=== PATIENT | female | born 2000 | race African-American/Black ===

== ENCOUNTER 2024-12-11 15:48 | Outpatient (CLI) | payer MEDICAID, SELFPAY ==
--- OUTSIDE RECORDS SUMMARY | 2024-12-11 15:51 | XMS_ITS | Encounter Summary ---
Author Organization [employer] ([place], [place], [place], [place], [place]) Address [address] [place] [address] Care Team Providers Care Smelter Liner Name Role Phone Unavailable Primary Care Provider Unavailabl e Encounter Details Date Type Department Care Team (Late st Contact Info) Description 04/25/2018 Transcribed Document [facility] [place] Family Medicine [facility] [place] [address] ProviderAleksandar MD [address] [place] [address] Social History Tobacco Use Types Packs/Day Years Used Date Smoking Tobacco: Never Assessed Comments Unknown Sex and Gender Information Value Date Recorded Sex Assigned at Female 08/02/2021 8:29 PM CDT Legal Sex Female 8:29 PM CDT Gender Identity Female 08/02/2021 8:29 PM CDT Sexual Orientation Not on file documented as of this encounter Miscellaneous Notes * Cerner Conversion Note - Historical ProviderMD - 04/25/2018 11:08 AM CDT ED Event Note Entered On: 04/25/2018 11:11 EDT Performed On: 04/25/2018 11:08 EDT by JULIETTE BECKMAN RN ED Event Note ED Event Date/Time : 04/25/2018 11:08 EDT ED Event Location : Assigned room ED Description of Event : Pt. seen by Charisma JACOBSON and then given instructions and one script and verb understanding and left amb with family. JULIETTE BECKMAN RN - 04/25/2018 11:08 EDT documented in this encounter Plan of Treatment Not on file documented as of this encounter Visit Diagnoses Not on filedocumented in this encounter
--- OUTSIDE RECORDS SUMMARY | 2024-12-11 15:51 | XMS_ITS | Encounter Summary ---
Author Organization [employer] ([place], [place], [place], [place], [place]) Address [address] [place] [address] Care Team Providers Care Hot Dip Plater Name Role Phone Unavailable Primary Care Provider Unavailabl e Encounter Details Date Type Department Care Team (Late st Contact Info) Description 08/22/2019 Transcribed Document [facility] [place] [facility] [place] [address] ProviderAleksandar MD [address] [place], [place] [id number] Social History Tobacco Use Types Packs/Day Years Used Date Smoking Tobacco: Never Assessed Comments Unknown Sex and Gender Information Value Date Recorded Sex Assigned at Female 08/02/2021 8:29 PM CDT Legal Sex Female 8:29 PM CDT Gender Identity Female 08/02/2021 8:29 PM CDT Sexual Orientation Not on file documented as of this encounter Miscellaneous Notes * Cerner Conversion Note - Aleksandar ProviderMD - 08/22/2019 7:26 PM CDT [place] Suicide Severity Rating Scale (C-SSRS) Entered On: 08/22/2019 20:09 EDT Performed On: 08/22/2019 20:08 EDT by AQUILES VILLAREAL RN [place] Suicide Severity Rating Scale (C-SSRS) CSSRS Past Month Wish to be : Yes CSSRS Past Month Suicidal Thoughts : Yes CSSRS Past Month Suicide Method : No CSSRS Past Month Idea, Intent No Plan : Yes CSSRS Past Month Suicide With Plan : No CSSRS Lifetime Suicide Behavior : No Suicide Severity Rating Score : 10 Suicide Severity Rating : High AQUILES VILLAREAL RN - 08/22/2019 20:08 EDT Electronically signed by Aaliyah, Lin Conversion Shuttle Preparation Supervisor Cerner at 05/24/2022 12:29 PM CDT documented in this encounter Plan of Treatment Not on file documented as of this encounter Visit Diagnoses Not on filedocumented in this encounter
--- OUTSIDE RECORDS SUMMARY | 2024-12-11 15:51 | XMS_ITS | Encounter Summary ---
Author Organization [employer] ([place], [place], [place], [place], [place]) Address [address] [place] [address] Care Team Providers Care Patch Machine Operator Name Role Phone Unavailable Primary Care Provider Unavailabl e Encounter Details Date Type Department Care Team (Late st Contact Info) Description 08/22/2019 Transcribed Document [facility] [place] [address] ProviderAleksandar MD [address] [place] [address] Social History Tobacco Use Types Packs/Day [...] Conversion Note - Aleksandar ProviderMD - 08/22/2019 8:22 PM CDT Patient Resource Center Entered On: 08/22/2019 20:23 EDT Performed On: 08/22/2019 20:22 EDT by Yari Recio SCHEDULER Patient Resource Center Provider Status : SERINA/Simone Established Provider Name : No Patient Phone Number : [phone] Patient Insurance Type : Commercial (ex. [employer] PPO, [employer] HMO) Source of Referral : Requirements not met Location of Patient : Emergency department Primary Care Scheduled : No Specialty Care Scheduled : No Qualify for Diabetes and/or Nutrition Referral : No Wound Care Appointment Made : No Why Patient Visited ED- Specialty spent : Other How Patient Arrived at ED : Personal Vehicle Primary Language : Belarusian Patient Resource Center Comment : Requirements not met. Follow Up Needed : No Yari Recio, VOLUNTEER RECRUITMENT COORDINATOR - 08/22/2019 20:22 EDT documented in this encounter Plan of Treatment Not on file documented as of this encounter Visit Diagnoses Not on filedocumented in this encounter
--- OUTSIDE RECORDS SUMMARY | 2024-12-11 15:51 | XMS_ITS | Encounter Summary ---
Author Organization [employer] ([place], [place], [place], [place], [place]) Address [address] [place] [address] Care Team Providers Care Credit Charge Authorizer Name Role Phone Unavailable Primary Care Provider Unavailabl e Encounter Details Date Type Department Care Team (Late st Contact Info) Description 04/25/2018 Transcribed Document [facility] [place] [facility] [place] [address] ProviderAleksandar MD [address] [place] [address] Social History Tobacco Use Types Packs/Day [...] Cerner Conversion Note - Aleksandar ProviderMD - 04/25/2018 10:24 AM CDT ED Assessment Entered On: 04/25/2018 10:34 EDT Performed On: 04/25/2018 10:32 EDT by Catherine Maya Rn-Flex Team ED Quick Look Assessment Level of Consciousness : Alert, Awake Affect/Behavior : Appropriate, Calm, Cooperative Orientation : Oriented x 4 Catherine Maya Rn-Flex Team - 04/25/2018 10:32 EDT ED General-Functional Assess Information Obtained From : Patient Communication Barrier : None Primary Language : Mexican Any Spiritual/Cultural Needs or Requests : No Currently in Unsafe Situation : No Catherine Maya Rn-Flex Team - 04/25/2018 10:32 EDT Social Habits Smoking Status : 10 or more cigarettes (1/2 pack or more)/day in last 30 days Smokeless Tobacco Status : Never Desires Tobacco Cessation Medication : No Reason for No Tobacco Cessation Medication : ED/procedural patient only Desires Tobacco Cessation Calc : 1 Catherine Maya Rn-Flex Team - 04/25/2018 10:32 EDT Social History (As Of: 04/25/2018 10:34:17 EDT) Tobacco: 10 or more cigarettes (1/2 pack or more)/day in last 30 days Smoking Status. Last Used: reports quit 2 weeks ago, approximately 04/11/18. (Last Updated: 04/25/2018 10:33:58 EDT by Catherine Maya Rn-Flex Team) EENT Assessment EENT Assessment WDL : WDL with exceptions Mouth/Throat Assessment Comment : sore throat since Sunday Catherine Maya Rn-Flex Team - 04/25/2018 10:32 EDT documented in this encounter Plan of Treatment Not on file documented as of this encounter Visit Diagnoses Not on filedocumented in this encounter
--- OUTSIDE RECORDS SUMMARY | 2024-12-11 15:51 | XMS_ITS | Referral Summary ---
Author Organization [employer] ([place], [place], [place], [place], [place]) Address [address] [place] [address] Care Team Providers Care Property Disposal Manager Name Role Phone Unavailable Primary Care Provider Unavailabl e Social History Tobacco Use Types Packs/Day Years Used Date Smoking Tobacco: Never Assessed Comments Unknown Sex and Gender Information Value Date Recorded Sex Assigned at Female 08/02/2021 8:29 PM CDT Legal Sex Female 8:29 PM CDT Gender Identity Female 08/02/2021 8:29 PM CDT Sexual Orientation Not on file Plan of Treatment Not on file
--- OUTSIDE RECORDS SUMMARY | 2024-12-11 15:51 | XMS_ITS | Encounter Summary ---
Author Organization [employer] ([place], [place], [place], [place], [place]) Address [address] [place] [address] Care Team Providers Care Salesperson Toy Trains And Accessories Name Role Phone Unavailable Primary Care Provider Unavailabl e Encounter Details Date Type Department Care Team (Late st Contact Info) Description 08/22/2019 Transcribed Document [facility] [place] Family [place] [address] ProviderAleksandar MD [address] [place] [address] Social History Tobacco Use Types Packs/Day [...] Conversion Note - Aleksandar ProviderMD - 08/22/2019 8:15 PM CDT ED Event Note Entered On: 08/22/2019 20:17 EDT Performed On: 08/22/2019 20:15 EDT by Kanchan Wiggins RN ED Event Note ED Event Date/Time : 08/22/2019 20:15 EDT ED Event Location : Assigned room ED Description of Event : Called [facility] transfer [place] for a mobile evaluation. Kanchan Wiggins RN - 08/22/2019 20:15 EDT Electronically signed by Aaliyah [facility] Conversion Dining Room Maid Cerner at 05/24/2022 12:38 PM CDT documented in this encounter Plan of Treatment Not on file documented as of this encounter Visit Diagnoses Not on filedocumented in this encounter
--- OUTSIDE RECORDS SUMMARY | 2024-12-11 15:51 | XMS_ITS | Encounter Summary ---
Author Organization [employer] ([place], [place], [place], [place], [place]) Address [address] [place] [address] Care Team Providers Care Crimping Machine Operator For Metal Name Role Phone Unavailable Primary Care Provider Unavailabl e Encounter Details Date Type Department Care Team (Late st Contact Info) Description 08/22/2019 Transcribed Document [facility] [place] [facility] [place] [address] ProviderAleksandar MD [address] [place] [address] Social History Tobacco Use Types Packs/Day [...] Conversion Note - Aleksandar ProviderMD - 08/22/2019 11:38 PM CDT ED Discharge Entered On: 08/22/2019 23:38 EDT Performed On: 08/22/2019 23:38 EDT by Kim García, monogram and letter paster Process Patient Disposition : Transfer Personal Belongings With Patient : Yes Patient Education Completed : Yes Teaching Evaluation : Verbalizes understanding IV Discontinued : Not applicable Nursing Documentation Completed : Yes Kim García, RN - 08/22/2019 23:38 EDT ED Discharge Discharge To : Psychiatric unit/facility Name of Receiving Facility/Provider : [facility] Mode Of Departure : Ambulance/BLS Accompanied By : merchandiser seasonal Discharge Instructions Reviewed With, Opportunity For Questions Given : Patient Prescriptions Given to Patient : No Kim García L, RN - 08/22/2019 23:38 EDT Electronically signed by Aaliyah, [facility] Conversion Air Quality Engineer Cerner at 05/24/2022 12:33 PM CDT documented in this encounter Plan of Treatment Not on file documented as of this encounter Visit Diagnoses Not on filedocumented in this encounter
--- OUTSIDE RECORDS SUMMARY | 2024-12-11 15:51 | XMS_ITS | Encounter Summary ---
Author Organization [employer] ([place], [place], [place], [place], [place]) Address [address] [place] [address] Care Team Providers Care Cleaning Custodian Name Role Phone Unavailable Primary Care Provider Unavailabl e Encounter Details Date Type Department Care Team (Late st Contact Info) Description 04/25/2018 Transcribed Document [facility] [place] [address] ProviderAleksandar MD [address] [place] [address] Social History Tobacco Use Types Packs/Day [...] Conversion Note - Aleksandar ProviderMD - 04/25/2018 11:12 AM CDT [address] [place] [address] Patient Information Name: YAHAIRA WALTON Age: 17 Years Date of : 2000 Arrival Time: 04/25/2018 10:24:00 Diagnosis Pharyngitis Primary Care Physician: KIM MELENDEZ DR Provider Information Primary Provider: ALPHONSO MUNGUIA PA-C Secondary Provider: WALTON, VALORIEMIKE KITCHEN has been given the following list of patient education materials, prescriptions and follow-up instructions: Follow-up Instructions: With: Address: When: Salvador Montes Within 2 to 3 days Comments: Return to ER if symptoms worse or different. Patient Education Materials: Pharyngitis Pharyngitis is redness, pain, and swelling (inflammation) of your pharynx. What are the causes? Pharyngitis is usually caused by infection. Most of the time, these infections are from viruses (viral) and are part of a cold. However, sometimes pharyngitis is caused by bacteria (bacterial). Pharyngitis can also be caused by allergies. Viral pharyngitis may be spread from person to person by coughing, sneezing, and personal items or utensils (cups, forks, spoons, toothbrushes). Bacterial pharyngitis may be spread from person to person by more intimate contact, such as kissing. What are the signs or symptoms? Symptoms of pharyngitis include: ??? Sore throat. ??? Tiredness (fatigue). ??? Low-grade fever. ??? Headache. ??? Joint pain and muscle aches. ??? Skin rashes. ??? Swollen lymph nodes. ??? Plaque-like film on throat or tonsils (often seen with bacterial pharyngitis). How is this diagnosed? Your health care provider will ask you questions about your illness and your symptoms. Your medical history, along with a physical exam, is often all that is needed to diagnose pharyngitis. Sometimes, a rapid strep test is done. Other lab tests may also be done, depending on the suspected cause. How is this treated? Viral pharyngitis will usually get better in 3?4 days without the use of medicine. Bacterial pharyngitis is treated with medicines that kill germs (antibiotics). Follow these instructions at home: ??? Drink enough water and fluids to keep your urine clear or pale yellow. ??? Only take dios-[id number] or prescription medicines as directed by your health care provider: ? If you are prescribed antibiotics, make sure you finish them even if you start to feel better. ? Do nottake aspirin. ??? Get lots of rest. ??? Gargle with 8 oz of salt water (? tsp of salt per 1 qt of water) as often as every 1?2 hours to soothe your throat. ??? Throat lozenges (if you are not at risk for choking) or sprays may be used to soothe your throat. Contact a health care provider if: ??? You have large, tender lumps in your neck. ??? You have a rash. ??? You cough up green, yellow-brown, or bloody spit. Get help right away if: ??? Your neck becomes stiff. ??? You drool or are unable to swallow liquids. ??? You vomit or are unable to keep medicines or liquids down. ??? You have severe pain that does not go away with the use of recommended medicines. ??? You have trouble breathing (not caused by a stuffy nose). This information is not intended to replace advice given to you by your health care provider. Make sure you discuss any questions you have with your health care provider. Document Released: 01/22/2006 Document Revised: 06/29/2016 Document Reviewed: 09/29/2013 [email or web address] Interactive Patient Education ? 2017 [employer]. Allergies: sulfa drugs Medication Information: Prescription Display azithromycin (Zithromax Z-Castillo 250 mg oral tablet) 1 Tab, Oral, Tab, Daily, TAKE 2 TABLETS FIRST DAY, THEN 1 TABLET DAILY, X 5 Day(s), # 6 Tab, 0 Refill(s) Laboratory or Other Results This Visit (last charted value for your 04/25/2018 visit) No Laboratory or Other Results This Visit Medication Comment: Procedures: Laboratory Orders No laboratory orders were placed. Radiology Orders No radiology orders were placed. Cardiology Orders No cardiology orders were placed. This statement is to verify that YAHAIRA WALTON was seen at [facility] Emergency Department on ,04/25/2018 11:12:22. This is not a work excuse, if a work excuse was needed it will be in addition to this statement as a separate form. IMPORTANT: The examination and treatment you have received in the Emergency Department has been done to provide an appropriate evaluation and stabilizing treatment on an emergency basis only. Given the limited resources, it is not meant to be a substitute for complete medical care. The follow-up doctor you named will receive a copy of your records and all test reports. IT IS IMPORTANT THAT YOU SCHEDULE A FOLLOW-UP APPOINTMENT AND ARE RE-EVALUATED. You should report any new complaints, symptoms, or remaining problems at that time. IT IS IMPOSSIBLE FOR THE EMERGENCY DEPARTMENT TO RECOGNIZE AND TREAT ALL ELEMENTS OF INJURY OR ILLNESS IN A SINGLE VISIT. If you have been referred to a specialist physician, it means that we believe you may have a condition that requires the expertise of a specialist. KEEP IN MIND THAT THE SPECIALIST HAS HIS/HER OWN OFFICE POLICIES WHICH MAY REQUIRE PROPER INSURANCE OR PAYMENT UP FRONT BEFORE THE SPECIALIST WILL SEE YOU. It is your responsibility to call the specialist physician to make an appointment. We do not have the ability to identify specialists/physicians that work with specific insurance companies. Please be advised that all financial charges or billing practices are determined by that practice, not the hospital. If your insurance company requires that you see a specialist from their approved list, it is your responsibility to contact your insurance company to make those arrangements. It is also your responsibility to follow any other requirements of your insurance company necessary to obtain coverage for claims submitted. If you had special tests, such as EKG???s or X-rays, the interpretation of your tests given to you by the Emergency Dept. Physician is a preliminary report. Some fractures and illnesses fail to show up on preliminary tests. We will review them again within 24-48 hours. We will call you if there are any new suggestions. If your symptoms continue notify your physician. After you leave, you should follow the instructions below. In all events, you may obtain a copy of your Emergency Department visit from Medical Records. Please call to be directed to this department. We will bill your insurance; however, you are responsible today for any co-pay amounts. You will receive a separate bill for any services you may have received including: emergency, radiology, or pathology physicians. Please be sure we have an accurate contact phone number and address, should we need to call you for any reason. CIGARETTE SMOKING: The facts are clear; cigarette smoking will shorten your life. Smoking can cause many illnesses along the way. As a healthcare provider, [facility] recommends that you stop smoking. Assistance with quitting is available by contacting 7-561-RAUZ-NOW. This is a free resource providing counseling, support, and referral. Or you may contact your personal physician. As part of your treatment plan, your physician may have prescribed a limited course of a controlled substance. This medication may be given to help people with moderate or severe pain or for other medical conditions, but there are risks involved with treatment. Common side effects may include nausea, constipation, drowsiness, sweating, itching, dry mouth, and rash. More serious side effects may include cognitive and motor impairment, like problems with thinking, concentrating, alertness, and movement (e.g. slowed reflexes), and driving and operating heavy machinery can be dangerous. It is important for you to talk to your physician if you have these side effects or questions. These controlled substances can produce physical dependence and be habit-forming if taken for an extended period of time, which means that the body has gotten used to them and may experience withdrawal symptoms if they are abruptly stopped. Withdrawal symptoms can include runny nose, sweating, goose bumps, diarrhea, abdominal cramping, rapid heartbeat, difficulty sleeping, and nervousness. The home medications listed are only as accurate as the information you provided. Please continue taking all of your medications prescribed by your Primary Care Provider unless specifically told to change or discontinue the medication. Please direct any questions regarding your home medications to your Primary Care Provider. YOU ARE THE MOST IMPORTANT FACTOR IN YOUR RECOVERY. ?? Follow your instructions carefully ?? Take your medicines as prescribed ?? Most important, see a provider as discussed. If you do not have a provider, we can provide a list of clinics Confidential This message and accompanying documents are covered by Electronic Communications Privacy Act 18 U.S.C. ???Sections 9104-3108,?? and contain information intended for the specified individual(s) only. This information is confidential. If you are not the intended recipient or an agent responsible for delivering it to the intended recipient, you are hereby notified that you have received the document in error and that any review, dissemination, copying, or the taking of any action based on the contents of this information is strictly prohibited. If you have received this communication in error, please notify us immediately by email, and delete the original message. 4 WAYS TO GET AHEAD OF SEPSIS SEPSIS is a MEDICAL EMERGENCY. Time matters! Infections put you and your family at risk for a life-threatening condition called sepsis. Sepsis is the body???s extreme response to an infection. It is life-threatening, and without timely treatment, sepsis can rapidly lead to tissue damage, organ failure, and . Sepsis happens when an infection you already have???in your skin, lungs, urinary tract or somewhere else???triggers a chain reaction throughout your body. 1 PREVENT INFECTIONS Take good care of chronic conditions. Talk to your doctor about getting the recommended vaccines. 2 PRACTICE GOOD HYGIENE Wash your hands frequently. Keep cuts or open sores clean and covered until they are healed. 3 KNOW THE SYMPTOMS Confusion or disorientation Shortness of breath High heart rate Fever, shivering, or feeling very cold Extreme pain or discomfort Clammy or sweaty skin 4 ACT FAST Get medical care IMMEDIATELY if you suspect sepsis or if you have an infection that???s not getting better or is getting worse. To learn more about sepsis and how to prevent infections, visit www.cdc.gov/sepsis. STROKE is an EMERGENCY Every [employer] ACT F.A.S.T! FACE ?? Facial droop ?? Uneven smile ARM ?? Arm numbness ?? Arm weakness SPEECH ?? Slurred speech ?? Difficulty speaking or understanding TIME ?? Call 911 and get to the hospital immediately Have the ambulance go to the nearest stroke center. STROKE Risk Factors High blood pressure High cholesterol Heart Disease Diabetes Smoking Heavy alcohol use Physical inactivity and obesity Atrial Fibrillation (irregular heartbeat) Family history of stroke Acknowledgment I hereby acknowledge receipt of these instructions and information above. I understand that I have received Emergency Treatment only which is not a substitute for complete medical care and acknowledge that all of my medical problems may not be known, identified, or treated prior to my release. I UNDERSTAND THE NEED TO ARRANGE FOLLOW-UP CARE WITH THE PHYSICIAN INDICATED. I UNDERSTAND THAT I SHOULD CONTACT MY PHYSICIAN IMMEDIATELY OR RETURN TO THE EMERGENCY DEPARTMENT IF MY CONDITION WORSENS, FAILS TO IMPROVE, OR NEW SYMPTOMS APPEAR. Vital Signs B/P PULSE RESP. RATE TEMPERATURE PULSE OX Signature of Emergency Provider Date / Time Signature of Emergency Nurse Date / Time Reminder: Be sure to sign up for the My [facility] patient portal, which gives you 28/08 access to your medical information ??? including these discharge instructions ??? using your computer, smartphone, or tablet. Just go to [employer] to get started. Questions? Call . Acknowledgment I hereby acknowledge receipt of these instructions and information above. I understand that I have received Emergency Treatment only which is not a substitute for complete medical care and acknowledge that all of my medical problems may not be known, identified, or treated prior to my release. I UNDERSTAND THE NEED TO ARRANGE FOLLOW-UP CARE WITH THE PHYSICIAN INDICATED. I UNDERSTAND THAT I SHOULD CONTACT MY PHYSICIAN IMMEDIATELY OR RETURN TO THE EMERGENCY DEPARTMENT IF MY CONDITION WORSENS, FAILS TO IMPROVE, OR NEW SYMPTOMS APPEAR. Signature of Patient / Responsible Person Date / Time Please provide a telephone number where you can be reached. The best time to call is between: It is permissable to leave a message if no answer: Yes____ No____ Nurse Providing Instructions: Emergency Physician: documented in this encounter Plan of Treatment Not on file documented as of this encounter Visit Diagnoses Not on filedocumented in this encounter
--- OUTSIDE RECORDS SUMMARY | 2024-12-11 15:51 | XMS_ITS | Encounter Summary ---
Author Organization [employer] ([place], [place], [place], [place], [place]) Address [address] [place] [address] Care Team Providers Care Tank Car Cleaner Name Role Phone Unavailable Primary Care Provider Unavailabl e Encounter Details Date Type Department Care Team (Late st Contact Info) Description 08/22/[address] [facility] [place] [facility] [place] [address] ProviderAleksandar MD [address] [place] [address] Social History Tobacco Use Types Packs/Day [...] Cerner Conversion Note - Historical ProviderMD - 08/22/2019 8:06 PM CDT ED Event Note Entered On: 08/22/2019 20:13 EDT Performed On: 08/22/2019 20:06 EDT by Kanchan Wiggins RN ED Event Note ED Event Date/Time : 08/22/2019 20:06 EDT ED Description of Event : spoke to Nanette from [facility]. Patient has been accepted for outpatient therapy, and will transfer information to [facility] for in hospital assessment. pt is in paperscrubs, security at [facility], in view of nurses station. Kanchan Wiggins RN - 08/22/2019 20:06 EDT Electronically signed by Aaliyah [facility] Conversion Felting Machine Operator Helper Cerner at 05/24/2022 12:32 PM CDT documented in this encounter Plan of Treatment Not on file documented as of this encounter Visit Diagnoses Not on filedocumented in this encounter
--- OUTSIDE RECORDS SUMMARY | 2024-12-11 15:51 | XMS_ITS | Patient Health Record ---
Author Organization [employer]-Danis Giron MD Address [address] [place] [address] Care Team Providers Care Regional Rehabilitation Director Name Role Phone drier and gr[facility] Care Provide r Unavailable Danis Giron Unavailable [phone] Allergies Allergen (clinical drug ingredient) Drug/Non Drug Allergy documented on EMR Reaction Allergy Type Onset Date Status sulfa Unknown Drug Allergy Active Reason For Referral No Information Social History Tobacco Use: Social History Observation Description Date Details (start date - stop date) Never Smoker NA - NA Smoking Question Answer Notes Do you Smoke ? no Problems Problem Type SNOMED Code ICD Code Onset Dates Problem Status W/U Status Risk Notes Problem Cervical lymphadenopathy (483596288) Cervical lymphadenopathy (785.6) Active confirmed Plan Of Treatment No Information Insurance Providers Payer Name Payer Address Payer Phone Subscriber Number Group Number Insured Name Patient Relationship to Insured Coverage Start Date Coverage End Date [facility] [employer] Plans [address] [address] [place] [phone] [id number] Yahaira Walton Self - patient is the insured Medical (General) History Medical History History ICD Code Thyroid Disease No hypertension No asthma No Diabetes No Diabetes Insulin Dependent No Heart Disease No Cancer No Lung Disease No kidney stones No
--- OUTSIDE RECORDS SUMMARY | 2024-12-11 15:51 | XMS_ITS | Encounter Summary ---
Author Organization [employer] ([place], [place], [place], [place], [place]) Address [address] [place] [address] Care Team Providers Care Digital Campaign Specialist Name Role Phone Unavailable Primary Care Provider Unavailabl e Encounter Details Date Type Department Care Team (Late st Contact Info) Description 04/23/2018 Transcribed Document [facility] [place] [address] ProviderAleksandar MD [address] [place] [address] Social History Tobacco Use Types Packs/Day [...] Cerner Conversion Note - Aleksandar ProviderMD - 04/23/2018 9:05 PM CDT ED Discharge Entered On: 04/23/2018 22:03 EDT Performed On: 04/23/2018 21:05 EDT by Brina Chung interchange agent Process Patient Disposition : Discharge Personal Belongings With Patient : Yes Patient Education Completed : Yes Teaching Evaluation : Verbalizes understanding IV Discontinued : Not applicable Nursing Documentation Completed : Yes Brina Chung RN - 04/23/2018 22:02 EDT ED Discharge Discharge To : Home with ambulatory/outpatient follow-up Mode Of Departure : Ambulatory Prescriptions Given to Patient : Yes Number of Prescriptions Given : 2 Brina Chung RN - 04/23/2018 22:02 EDT documented in this encounter Plan of Treatment Not on file documented as of this encounter Visit Diagnoses Not on filedocumented in this encounter
--- OUTSIDE RECORDS SUMMARY | 2024-12-11 15:51 | XMS_ITS | Encounter Summary ---
Author Organization [employer] ([place], [place], [place], [place], [place]) Address [address] [place] [address] Care Team Providers Care Merchandise Collector Name Role Phone Unavailable Primary Care Provider Unavailabl e Encounter Details Date Type Department Care Team (Late st Contact Info) Description 04/25/2018 Transcribed Document [facility] [place] [facility] [place] [address] ProviderAleksandar MD [address] [place] [id number] Social History Tobacco Use Types Packs/Day [...] Conversion Note - Aleksandar ProviderMD - 04/25/2018 10:45 AM CDT Patient: YAHAIRA WALTON Age: 17 years Sex: Female : 2000 Associated Diagnoses: Pharyngitis Author: ALPHONSO MUNGUIA PA-C Basic Information Time seen: Date & time 04/25/2018 10:32:00. History source: Patient. Arrival mode: Private vehicle. History limitation: None. Additional information: Chief Complaint from Nursing Triage Note : Chief Complaint 04/25/2018 10:30 EDT Chief Complaint pt c/o sore throat since Sunday, states having problems swallowing and eating things . History of Present Illness The patient presents with sore throat. The onset was 4 days ago. The course/duration of symptoms is constant. Location: Pharynx throat. The character of symptoms is pain and swelling. The degree at present is moderate. The exacerbating factor is swallowing. The relieving factor is none. Risk factors consist of none. Prior episodes: none. Therapy today: over the counter medications including motrin. Associated symptoms: fever, rhinorrhea, nasal congestion, denies nausea, denies vomiting, denies cough, denies dyspnea, denies change in voice, denies difficulty swallowing, denies jaw pain, denies ear pain, denies dental pain, denies facial pain, denies headache, denies foreign body sensation and denies rash. Patient reports she was in ER on Sunday and swabs were negative. Reports fever has been mostly around 100.. Review of Systems Constitutional symptoms: Fever. Skin symptoms: Negative except as documented in HPI. Eye symptoms: Negative except as documented in HPI. ENMT symptoms: Sore throat, nasal congestion. Respiratory symptoms: Negative except as documented in HPI. Cardiovascular symptoms: Negative except as documented in HPI. Gastrointestinal symptoms: Negative except as documented in HPI. Musculoskeletal symptoms: Negative except as documented in HPI. Neurologic symptoms: Negative except as documented in HPI. Psychiatric symptoms: Negative except as documented in HPI. Endocrine symptoms: Negative except as documented in HPI. Hematologic/Lymphatic symptoms: Negative except as documented in HPI. Allergy/immunologic symptoms: Negative except as documented in HPI. Additional review of systems information: All other systems reviewed and otherwise negative. Health Status Allergies: Allergic Reactions (Selected) Severity Not Documented Sulfa drugs- No reactions were documented.. Medications: (Selected) Prescriptions Prescribed Chloraseptic Denise 1.4% topical spray: 5 Ira, Oral, Q2H, for 5 Day(s), 180 mL, 0 Refill(s) ibuprofen 800 mg oral tablet: 1 Tab, Oral, TID, for 5 Day(s), PRN: as needed for pain, 15 Tab, 0 Refill(s). Past Medical/ Family/ Social History Medical history Negative. Surgical history: No active procedure history items have been selected or recorded.. Family history: Not significant. Social history: Social & Psychosocial Habits Home/Environment 04/25/2018 Living situation: Home/Independent Tobacco 04/25/2018 Smoking Status 10 or more cigarettes (1/ Month Tobacco Last Used reports quit 2 weeks ago, approximately 04/11/18 . Problem list: Active Problems (1) No Chronic Problems . Physical Examination Vital Signs Vital Signs/Vital Measures 04/25/2018 10:30 EDT Temperature Source Oral Temperature Mode Fahrenheit Temperature, Fahrenheit 98.8 Deg F Clinical Temperature, C 37.1 Deg C Peripheral Pulse Rate 81 bpm Respiratory Rate 16 Breaths/Min Systolic Blood Pressure 121 mmHg Diastolic Blood Pressure 57 mmHg LOW Oxygen Saturation 100 % Oxygen Therapy Mode Room air . Measurements 04/25/2018 10:30 EDT Height Source Stated Height Entry Format [place] Height/Length, GEORGIAN (ft) 5 ft Height/Length GE[place]GIAN 3 Inch CLINICALHEIGHT 160.02 cm [place] Body Weight 52.02 kg Weight Source, ED Standing scale Weight Entry Format [place] Weight Sinhala lb 176 lb CLINICALWEIGHT 80 kg Body Surface Area (BSA) 1.83 m2 Body Mass Index 31.2 kg/m2 HI . Oxygen Saturation 04/25/2018 10:30 EDT Oxygen Saturation 100 % . General: Alert, no acute distress. Skin: Warm, dry, normal for ethnicity. Head: Normocephalic. Neck: Supple, trachea midline, Lymphadenopathy: Right, anterior, mild, tender, smooth. Eye: Normal conjunctiva. Ears, nose, mouth and throat: Oral mucosa moist, Throat: Bilateral, moderate, pharynx, tonsil, erythema, with exudate, swelling, voice normal, swallowing without difficulty. small amount of excudate., no uvula shift. Respiratory: Lungs are clear to auscultation, respirations are non-labored, breath sounds are equal. Cardiovascular: Regular rate and rhythm, No murmur, Normal peripheral perfusion. Chest wall: No tenderness, No deformity. Back: Nontender, Normal range of motion, Normal alignment. Musculoskeletal: Normal ROM, normal strength, no tenderness, no swelling. Gastrointestinal: Soft, Nontender, Non distended. Neurological: Alert and oriented to person, place, time, and situation, normal motor observed, normal speech observed, normal coordination observed. Psychiatric: Cooperative, appropriate mood & affect, normal judgment. Medical Decision Making Differential Diagnosis: Viral pharyngitis, streptococcal pharyngitis. Documents reviewed: Emergency department nurses' notes, emergency department records, prior records, Patient has strep and flu negative on Sunday 04/23. Impression and Plan Diagnosis Pharyngitis - Discharge, Emergency medicine, Medical Plan Condition: Stable. Disposition: Discharged Admit/Transfer/Discharge: Discharge (Order): Start: 04/25/2018 10:59 EDT, Discharge to: Home. Prescriptions: Prescription Medical Claims Assistant Pharmacy: Zithromax Z-Castillo 250 mg oral tablet (Prescribe): 1 Tab, Oral, Daily, for 5 Day(s), TAKE 2 TABLETS FIRST DAY, THEN 1 TABLET DAILY, 6 Tab, 0 Refill(s). Patient was given the following educational materials: Pharyngitis. Follow up with: Salvador Montes Within 2 to 3 days Return to ER if symptoms worse or different. . Counseled: Patient, Regarding diagnosis, Regarding diagnostic results, Regarding treatment plan, Regarding prescription, Patient indicated understanding of instructions. Notes: I certify that the MLP/POOL HALL INSPECTOR performed the services as delegated. , Discussed with Dr. Harrison Maya and agrees with plan of care.. documented in this encounter Plan of Treatment Not on file documented as of this encounter Visit Diagnoses Not on filedocumented in this encounter
--- OUTSIDE RECORDS SUMMARY | 2024-12-11 15:51 | XMS_ITS | Encounter Summary ---
Author Organization [employer] ([place], [place], [place], [place], [place]) Address [address] [place] [address] Care Team Providers Care Cleaner Housekeeping Name Role Phone Unavailable Primary Care Provider Unavailabl e Encounter Details Date Type Department Care Team (Late st Contact Info) Description 04/25/2018 Transcribed Document [facility] [place] [facility] [place] [address] ProviderAleksandar MD [address] [place] [id number] Social History Tobacco Use Types Packs/Day [...] Aleksandar ProviderMD - 04/25/2018 11:12 AM CDT [address] [place], [place] [id number] PERSON INFORMATION Name YAHAIRA WALTON Age 17 Years 2000 Sex Female Language Japanese PCP KIM [address]EL[address] Marital Status Single Med Service Emergency Medicine Acct# Arrival 04/25/2018 10:24:00 Visit Reason Throat pain - Adult; Throat pain - Adult; SORE THROAT Acuity 4 - Non - Urgent LOS 000 00:48 Depart Date: 04/25/18 11:07 AM Address: [address] [place] [phone] Comment: PROVIDER INFORMATION Provider Role Assigned Unassigned ALPHONSO MUNGUIA PA-C ED Physician 04/25/2018 10:32:15 DIAGNOSIS Pharyngitis PHYS DOC NOTES VITALS INFORMATION Vital Sign Triage Latest Temp Source Oral Oral Temp Mode Fahrenheit Fahrenheit Temp Fahrenheit 98.8 Deg F 98.8 Deg F Temp Celsius 02 Sat 100 % 100 % Respiratory Rate 16 Breaths/Min 16 Breaths/Min Peripheral Pulse Rate 81 bpm 81 bpm Apical Heart Rate Blood Pressure 121 mmHg / 57 mmHg 121 mmHg / 57 mmHg Comment: MEDICAL INFORMATION Allergy Info: sulfa drugs Medications: Prescription Display azithromycin (Zithromax Z-Castillo 250 mg oral tablet) 1 Tab, Oral, Tab, Daily, TAKE 2 TABLETS FIRST DAY, THEN 1 TABLET DAILY, X 5 Day(s), # 6 Tab, 0 Refill(s) Comment: DISCHARGE INFORMATION Discharge Disposition: Home Discharge Location: PATIENT EDUCATION INFORMATION Instructions: Pharyngitis Follow up: With: Address: When: Salvador Montes Within 2 to 3 days Comments: Return to ER if symptoms worse or different. Comment: documented in this encounter Plan of Treatment Not on file documented as of this encounter Visit Diagnoses Not on filedocumented in this encounter
--- OUTSIDE RECORDS SUMMARY | 2024-12-11 15:51 | XMS_ITS | Encounter Summary ---
Author Organization [employer] ([place], [place], [place], [place], [place]) Address [address] [place] [address] Care Team Providers Care Heavy Lift Rigger Name Role Phone Unavailable Primary Care Provider Unavailabl e Encounter Details Date Type Department Care Team (Late st Contact Info) Description 04/23/2018 Transcribed Document [facility] [place] Medicine [facility] [place] [address] ProviderAleksandar MD [address] [place] [id number] Social History Tobacco Use Types Packs/Day Years Used Date Smoking Tobacco: Never Assessed Comments Unknown Sex and Gender Information Value Date Recorded Sex Assigned at Female 08/02/2021 8:29 PM CDT Legal Sex Female 8:29 PM CDT Gender Identity Female 08/02/2021 8:29 PM CDT Sexual Orientation Not on file documented as of this encounter Miscellaneous Notes * Cerner Conversion Note - Historical ProviderMD - 04/23/2018 9:02 PM CDT Electronically signed by [facility] Conversion Rigger Supervisor Cerner at 05/24/2022 12:28 PM CDT documented in this encounter Plan of Treatment Not on file documented as of this encounter Visit Diagnoses Not on filedocumented in this encounter
--- OUTSIDE RECORDS SUMMARY | 2024-12-11 15:51 | XMS_ITS | Encounter Summary ---
Author Organization [employer] ([place], [place], [place], [place], [place]) Address [address] [place] [address] Care Team Providers Care Director Of Conservation Name Role Phone Unavailable Primary Care Provider Unavailabl e Encounter Details Date Type Department Care Team (Late st Contact Info) Description 04/23/2018 Transcribed Document [facility] [place] [facility] [place] [address] ProviderAleksandar MD [address] [place] [id number] Social History Tobacco Use Types Packs/Day [...] Conversion Note - Aleksandar ProviderMD - 04/23/2018 10:03 PM CDT [address] [place] [address] PERSON INFORMATION Name YAHAIRA WALTON Age 17 Years 2000 Sex Female Language Greek PCP Salvador Montes APRN-FAM Marital Status Single Med Service Emergency Medicine Acct# Arrival 04/23/2018 19:57:00 Visit Reason Medical screening exam; SORE THROAT Acuity 4 - Non - Urgent LOS 000 02:06 Depart Date: 04/23/18 09:05 PM Address: [address] [place] [phone] Comment: PROVIDER INFORMATION Provider Role Assigned Unassigned NILAY GARRIDO PA ED Physician 04/23/2018 20:44:39 DIAGNOSIS Acute viral pharyngitis PHYS DOC NOTES VITALS INFORMATION Vital Sign Triage Latest Temp Source Oral Oral Temp Mode Fahrenheit Fahrenheit Temp Fahrenheit 100 Deg F 98.9 Deg F Temp Celsius 02 Sat 100 % 100 % Respiratory Rate 16 Breaths/Min 18 Breaths/Min Peripheral Pulse Rate 72 bpm 70 bpm Apical Heart Rate Blood Pressure 124 mmHg / 75 mmHg 131 mmHg / 76 mmHg Comment: MEDICAL INFORMATION Allergy Info: sulfa drugs Medications: Prescription Display ibuprofen (ibuprofen 800 mg oral tablet) 1 Tab, Oral, Tab, TID, PRN as needed for pain, X 5 Day(s), # 15 Tab, 0 Refill(s) phenol topical (Chloraseptic Denise 1.4% topical spray) 5 [place], Oral, Q2H, X 5 Day(s), # 180 mL, 0 Refill(s) Comment: DISCHARGE INFORMATION Discharge Disposition: Home Discharge Location: PATIENT EDUCATION INFORMATION Instructions: Pharyngitis, [id number] Follow up: With: Address: When: Salvador Montes [address] [place] [phone] [facility] (1) 2:30 PM Comments: Appointment has been made. Please arrive 20 minutes early for your new patient appointment. With: Address: When: Patient Resource Center Within 2 to 3 days Comments: Patient states she does not have a Primary Care Provider. Scheduled a new patient appointment with Salvador Montes. Please contact the Patient Resource Center at if you need assistance scheduling a Specialist or Primary Care Provider in the future. With: Address: When: Follow up with primary care provider Within 2 to 3 days Comments: Follow-up with primary care provider within 2-3 days of ED visit. Take medications as prescribed, gargle warm salt water for symptom control. Return to ED if symptoms worsen. Comment: Electronically signed by Lin Fischer Conversion Cathode Ray Tube Salvage Processor Cerner at 05/24/2022 12:23 PM CDT documented in this encounter Plan of Treatment Not on file documented as of this encounter Visit Diagnoses Not on filedocumented in this encounter
--- OUTSIDE RECORDS SUMMARY | 2024-12-11 15:51 | XMS_ITS | Encounter Summary ---
Author Organization [employer] ([place], [place], [place], [place], [place]) Address [address] [place] [address] Care Team Providers Care Architecture Consultant Name Role Phone Unavailable Primary Care Provider Unavailabl e Encounter Details Date Type Department Care Team (Late st Contact Info) Description 04/23/2018 Transcribed Document [facility] [place] [address] ProviderAleksandar MD [address] [place] [address] Social History Tobacco Use Types Packs/Day [...] Conversion Note - Aleksandar ProviderMD - 04/23/2018 7:58 PM CDT ED Triage Entered On: 04/23/2018 20:06 EDT Performed On: 04/23/2018 20:02 EDT by Justice Bunn RN ED Triage Across the Room Triage Date/Time : 04/23/2018 20:02 EDT Chief Complaint : pt here c/o sore throat and fever thats been going on for a couple of days Justice Bunn RN - 04/23/2018 20:02 EDT DCP GENERIC CODE Tracking Acuity : 4 - Non - Urgent Tracking Group : [facility] ED Justice Bunn RN - 04/23/2018 20:02 EDT Mode of Arrival : Ambulatory Transported to ED by : Walk in To Room Via : Ambulate Accompanied By : Unaccompanied ED Vital Signs : Document Height & Weight : Document ED Allergies : Document ED Reason for Visit : Document Justice Bunn RN - 04/23/2018 20:02 EDT Infectious Disease History Infectious Disease History : None Fever/Chills Last 48 Hours : No Travel To Regions with Travel Advisories : No Travel Outside [place] Within Last 30 Days : No Contact With Traveler to Advisory Region : No Tuberculosis Symptoms : None Justice Bunn RN - 04/23/2018 20:02 EDT Vital Signs ED Temperature Source : Oral Temperature Mode : Fahrenheit Temperature, Fahrenheit : 100 Deg F (HI) Clinical Temperature, C : 37.8 Deg C Oxygen Therapy Mode : Room air Peripheral Pulse Rate : 72 bpm Respiratory Rate : 16 Breaths/Min Systolic Blood Pressure : 124 mmHg Diastolic Blood Pressure : 75 mmHg Oxygen Saturation : 100 % Jsutice Bunn RN - 04/23/2018 20:02 EDT Allergy (As Of: 04/23/2018 20:06:55 EDT) Allergies (Active) sulfa drugs Estimated Onset Date: Unspecified ; Created By: Justice Bunn RN; Reaction Status: Active ; Category: Drug ; Substance: sulfa drugs ; Type: Allergy ; Updated By: Justice Bunn RN; Reviewed Date: 04/23/2018 20:04 EDT Diagnosis Control ED (As Of: 04/23/2018 20:06:55 EDT) Diagnoses(Active) Medical screening exam Date: 04/23/2018 ; Diagnosis Type: Reason For Visit ; Confirmation: Complaint of ; Clinical Dx: Medical screening exam ; Classification: Medical ; Clinical Service: Emergency medicine ; Code: PNED ; Probability: 0 ; Diagnosis Code: [id number] ED Height and Weight Height Source : Stated Height Entry Format : [place] Height, Feet : 5 ft(Converted to: 152 cm, 60 Inch) Height, Inches : 3 Inch(Converted to: 0 ft 3 Inch, 7.62 cm) Clinical Height : 160.02 cm Weight Source, ED : Standing scale Weight Entry Format : [place] Weight, Pounds : 177.5 lb Clinical Dosing Weight : 80.68 kg Body Surface Area (BSA) : 1.84 m2 Body Mass Index : 31.5 kg/m2 (HI) Force Body Weight (IBW) : 52.02 kg Justice Bunn RN - 04/23/2018 20:02 EDT documented in this encounter Plan of Treatment Not on file documented as of this encounter Visit Diagnoses Not on filedocumented in this encounter
--- OUTSIDE RECORDS SUMMARY | 2024-12-11 15:51 | XMS_ITS | Clinical Summary ---
Author Organization [employer] ([place], [place], [place], [place], [place]) Address [address] [place] [address] Care Team Providers Care Gas Station Clerk Name Role Phone Unavailable Primary Care Provider [...]
--- OUTSIDE RECORDS SUMMARY | 2024-12-11 15:51 | XMS_ITS | Encounter Summary ---
Author Organization [employer] ([place], [place], [place], [place], [place]) Address [address] [place] [address] Care Team Providers Care City Route Driver Name Role Phone Unavailable Primary Care Provider Unavailabl e Encounter Details Date Type Department Care Team (Late st Contact Info) Description 08/22/2019 Transcribed Document [facility] [place] [facility] [place] [address] ProviderAleksandar MD [address] [place] [phone] Social History Tobacco Use Types Packs/Day [...] Conversion Note - Aleksandar ProviderMD - 08/22/2019 8:13 PM CDT Patient: YAHAIRA WALTON Age: 19 years Sex: Female : 2000 Associated Diagnoses: Depression; Suicidal ideation Author: ANGI SHEEHAN MD Basic Information History source: Patient. Arrival mode: Private vehicle. History limitation: None. Additional information: Chief Complaint from Nursing Triage Note : Chief Complaint 08/22/2019 19:39 EDT Chief Complaint pt c/o weakness N/V. unable to food and fluids down for a couple days. pt has been accepted for outpatient therapy at [facility]. set for 08/27. pt states she feels out of sorts and having thoughts of not wanting to live anymore. . History of Present Illness This is a 19-year-old female with a past medical history significant for depression, previously had received counseling that stopped in 2014, who presents here for increasing sadness over the last several days, having thoughts of not wanting to live anymore. She has had thoughts of suicide, but has no specific plan. She does not currently have a counselor or take any medications for mental health or any other medical problems. She complains of some generalized lower abdominal pain and decreased by mouth intake over the last 5 days. She has not had any fevers or diarrhea. She has had several episodes of vomiting. No urinary symptoms or abnormal vaginal discharge. Review of Systems Additional review of systems information: 10 point review of systems reviewed and negative except as stated in history of present illness . Health Status Allergies: Allergic Reactions (Selected) Severity Not Documented Sulfa drugs- No reactions were documented.. Medications: (Selected) , per nurse's notes. Immunizations: Per nurse's notes. Past Medical/ Family/ Social History Medical history Reviewed as documented in chart. Surgical history: Reviewed as documented in chart. Family history: Reviewed as documented in chart. Social history: Reviewed as documented in chart. Problem list: Active Problems (1) Suicide risk , per nurse's notes. Physical Examination Vital Signs Vital Signs/Vital Measures 08/22/2019 21:11 EDT Systolic Blood Pressure 112 mmHg Diastolic Blood Pressure 63 mmHg Peripheral Pulse Rate 70 bpm Respiratory Rate 17 Breaths/Min Oxygen Saturation 99 % Oxygen Therapy Mode Room air 08/22/2019 20:09 EDT Oxygen Therapy Mode Room air 08/22/2019 19:39 EDT Blood Pressure Location Arm, right upper Blood Pressure Source Non-Invasive BP Device Systolic Blood Pressure 140 mmHg Diastolic Blood Pressure 90 mmHg Temperature Source Oral Temperature Mode Fahrenheit Temperature, Fahrenheit 98.1 Deg F Clinical Temperature, C 36.7 Deg C Peripheral Pulse Rate 110 bpm HI Respiratory Rate 16 Breaths/Min Oxygen Saturation 100 % Oxygen Therapy Mode Room air . Per nurse's notes. General: Alert, no acute distress. Skin: Warm, dry. Head: Normocephalic. Neck: Supple. Ears, nose, mouth and throat: Oral mucosa moist. Cardiovascular: Regular rate and rhythm, No murmur. Respiratory: Lungs are clear to auscultation, respirations are non-labored, breath sounds are equal. Gastrointestinal: Soft, Nontender, Non distended, Normal bowel sounds. Neurological: Normal speech observed, normal coordination observed. Psychiatric: Cooperative. Medical Decision Making Differential Diagnosis: Anxiety, depression, suicide risk, drug abuse, insomnia, psychosis. Documents reviewed: Emergency department nurses' notes, prior records. Results review: Lab results : Lab Results 08/22/2019 20:25 EDT Urine Type. U CleanCatch Urine Color Ivonne Urine Appearance Turbid Urine Specific [place] >1.030 HI Urine pH Dipstick 5.5 LOW Urine Leukocyte Esterase Negative Urine Nitrite Negative Urine Protein Dipstick Negative Urine Glucose Dipstick Negative Urine Ketones Dipstick >=80 Urine Urobilinogen Dipstick 1.0 EU/dL Urine Bilirubin Dipstick Moderate Urine Blood Dipstick Moderate Ur WBC 0-2 /HPF Ur Bacteria 1+ Ur Mucous 1+ Ur Squamous Epithelial Cells 2-5 /HPF HCG Urine Qualitative Negative UDS pH 5.5 UDS Amp NEGATIVE UDS Daiana NEGATIVE UDS Benzo NEGATIVE UDS Jana NEGATIVE UDS Opi NEGATIVE UDS PCP NEGATIVE UDS TCA NEGATIVE UDS THC POSITIVE 08/22/2019 20:22 EDT Sodium Level 138 mmol/L Potassium Level 3.5 mmol/L Chloride Level 106 mmol/L Carbon Dioxide Level 23 mmol/L Anion Gap 12 Glucose Level 73 mg/dL LOW Blood Urea Nitrogen 11 mg/dL CREATININE 1.10 mg/dL HI eGFR >60 mL/min/1.73m2 eGFR NonAfrican >60 mL/min/1.73m2 Bun/Creatinine 10.0 Calcium Level 9.1 mg/dL Protein Total 8.4 Gram/dL HI Albumin Level 4.3 Gram/dL Globulin 4.1 Gram/dL A/G Ratio 1.0 LOW Bilirubin Total 0.7 mg/dL Alk Phos 86 Units/Liter AST 12 Units/Liter ALT 15 Units/Liter Lipase Level 18 Units/Liter LOW WBC 9.8 K/uL RBC 4.25 Million/uL Hgb 15.2 g/dL Hct 42.3 % MCV 99.5 fL HI MCH 35.8 pg HI MCHC 35.9 Gram/dL Platelet Count 235 K/uL MPV 11.1 fL RDW 11.0 % LOW Neut % 69.5 % Neut # 6.84 K/uL HI Lymph % 21.9 % Lymph # 2.16 x10(3)/uL [place] % 7.0 % [place] # 0.69 K/uL Eos % 0.9 % Eos # 0.09 x10(3)/uL Baso % 0.3 % Baso # 0.03 x10(3)/uL Slide Review No IG# 0.04 x10(3)/uL IG% 0.40 % Alcohol <3 mg/dL NA %Alcohol <.00 NA . Notes: Patient with ketones in urine, but is drinking water well here without any vomiting. She is medically cleared for [facility] evaluation and is accepted there by Dr. Martinez further management and evaluation.. Impression and Plan Diagnosis Depression - Discharge, Medical Suicidal ideation - Discharge, Medical Plan Condition: Stable. Disposition: Admit Admit/Transfer/Discharge: ED Transfer (Order): Start: 08/22/2019 23:12 EDT, Unit Type: Behavioral Health. documented in this encounter Plan of Treatment Not on file documented as of this encounter Visit Diagnoses Not on filedocumented in this encounter
--- OUTSIDE RECORDS SUMMARY | 2024-12-11 15:51 | XMS_ITS | Encounter Summary ---
Author Organization [employer] ([place], [place], [place], [place], [place]) Address [address] [place] [address] Care Team Providers Care Beekeeper Name Role Phone Unavailable Primary Care Provider Unavailabl e Encounter Details Date Type Department Care Team (Late st Contact Info) Description 08/22/2019 Transcribed Document [facility] [place] Family [place] [facility] [place] [address] ProviderAleksandar MD [address] [place] [address] Social History Tobacco Use Types [...] Conversion Note - Aleksandar ProviderMD - 08/22/2019 11:03 PM CDT ED Event Note Entered On: 08/22/2019 23:03 EDT Performed On: 08/22/2019 23:03 EDT by Kim García, MOLDER LABELS Event Note ED Event Date/Time : 08/22/2019 23:03 EDT ED Description of Event : Report called to [address] at [phone] to RN Kim García, RN - 08/22/2019 23:03 EDT documented in this encounter Plan of Treatment Not on file documented as of this encounter Visit Diagnoses Not on filedocumented in this encounter
--- OUTSIDE RECORDS SUMMARY | 2024-12-11 15:51 | XMS_ITS | Encounter Summary ---
Author Organization [employer] ([place], [place], [place], [place], [place]) Address [address] [place] [address] Care Team Providers Care Jacquard Loom Weaver Name Role Phone Unavailable Primary Care Provider Unavailabl e Encounter Details Date Type Department Care Team (Late st Contact Info) Description 04/25/2018 Transcribed Document [facility] [place] Family Medicine [facility], [place] [address] ProviderAleksandar MD [address] [place] [address] Social History Tobacco Use Types Packs/Day [...] ProviderMD - 04/25/2018 10:24 AM CDT ED Triage Entered On: 04/25/2018 10:32 EDT Performed On: 04/25/2018 10:30 EDT by Catherine Maya Rn-Flex Team ED Triage Across the Room Triage Date/Time : 04/25/2018 10:30 EDT Chief Complaint : pt c/o sore throat since Sunday, states having problems swallowing and eating things Catherine Maya Rn-Flex Team - 04/25/2018 10:30 EDT DCP GENERIC CODE Tracking Acuity : 4 - Non - Urgent Tracking Group : [facility] ED Catherine Maya Rn-Flex Team - 04/25/2018 10:30 EDT Mode of Arrival : Ambulatory Transported to ED by : Private vehicle To Room Via : Ambulate Accompanied By : Mother ED Vital Signs : Document Height & Weight : Document ED Allergies : Document ED Reason for Visit : Document Catherine Maya Rn-Flex Team - 04/25/2018 10:30 EDT Infectious Disease History Infectious Disease History : None Fever/Chills Last 48 Hours : No Travel To Regions with Travel Advisories : No Travel Outside [place] Within Last 30 Days : No Contact With Traveler to Advisory Region : No Tuberculosis Symptoms : None Catherine Maya Rn-Flex Team - 04/25/2018 10:30 EDT Vital Signs ED Temperature Source : Oral Temperature Mode : Fahrenheit Temperature, Fahrenheit : 98.8 Deg F ED Pain : Yes Clinical Temperature, C : 37.1 Deg C Oxygen Therapy Mode : Room air Peripheral Pulse Rate : 81 bpm Respiratory Rate : 16 Breaths/Min Systolic Blood Pressure : 121 mmHg Diastolic Blood Pressure : 57 mmHg (LOW) Oxygen Saturation : 100 % Catherine Maya Rn-Flex Team - 04/25/2018 10:30 EDT Allergy (As Of: 04/25/2018 10:32:46 EDT) Allergies (Active) sulfa drugs Estimated Onset Date: Unspecified ; Created By: Justice Bunn RN; Reaction Status: Active ; Category: Drug ; Substance: sulfa drugs ; Type: Allergy ; Updated By: Justice Bunn RN; Reviewed Date: 04/25/2018 10:30 EDT Diagnosis Control ED (As Of: 04/25/2018 10:32:46 EDT) Problems(Active) No Chronic Problems (Cerner :NKP ) Name of Problem: No Chronic Problems ; Recorder: Catehrine Maya Rn-Flex Team; Code: NKP ; Last Updated: 04/25/2018 10:32 EDT ; Life Cycle Date: 04/25/2018 ; Life Cycle Status: Active ; Vocabulary: Sonaner Diagnoses(Active) Throat pain - Adult Date: 04/25/2018 ; Diagnosis Type: Reason For Visit ; Confirmation: Complaint of ; Clinical Dx: Throat pain - Adult ; Classification: Medical ; Clinical Service: Non-Specified ; Code: PNED ; Probability: 0 ; Diagnosis Code: [id number] ED Height and Weight Height Source : Stated Height Entry Format : [place] Height, Feet : 5 ft(Converted to: 152 cm, 60 Inch) Height, Inches : 3 Inch(Converted to: 0 ft 3 Inch, 7.62 cm) Clinical Height : 160.02 cm Weight Source, ED : Standing scale Weight Entry Format : [place] Weight, Pounds : 176 lb Clinical Dosing Weight : 80 kg Body Surface Area (BSA) : 1.83 m2 Body Mass Index : 31.2 kg/m2 (HI) [place] Body Weight (IBW) : 52.02 kg Catherine Maya Rn-Flex Team - 04/25/2018 10:30 EDT Pain Assessment Pain Assessment : Initial assessment Pain Scale Used : 0-10 Scale Catherine Maya Rn-Flex Team - 04/25/2018 10:30 EDT Pain Scale Intensity : 7 Catherine Maya Rn-Flex Team - 04/25/2018 10:30 EDT Image 4 - Images currently included in the form version of this document have not been included in the text rendition version of the form. documented in this encounter Plan of Treatment Not on file documented as of this encounter Visit Diagnoses Not on filedocumented in this encounter
--- OUTSIDE RECORDS SUMMARY | 2024-12-11 15:51 | XMS_ITS | Encounter Summary ---
Author Organization [employer] ([place], [place], [place], [place], [place]) Address [address] [place] [address] Care Team Providers Care Group Controller Name Role Phone Unavailable Primary Care Provider Unavailabl e Encounter Details Date Type Department Care Team (Late st Contact Info) Description 04/23/2018 Transcribed Document [facility] [place] Family Medicine [facility] [place] [address] ProviderAleksandar MD [address] [place] [address] Social History Tobacco Use Types Packs/Day [...] Conversion Note - Aleksandar ProviderMD - 04/23/2018 8:50 PM CDT Patient: YAHAIRA WALTON Age: 17 years Sex: Female : 2000 Associated Diagnoses: Acute viral pharyngitis Author: NILAY GARRIDO PA Basic Information Time seen: Date 04/23/2018. History source: Patient. Arrival mode: Private vehicle. History limitation: None. Additional information: Chief Complaint from Nursing Triage Note : Chief Complaint 04/23/2018 20:02 EDT Chief Complaint pt here c/o sore throat and fever thats been going on for a couple of days . History of Present Illness The character of symptoms is pain. The degree at onset was minimal. The degree at present is moderate. Patient is an 17-year-old female who presents for evaluation of sore throat, fever, body aches for the past 3 days. Patient states her fever has been controlled with Tylenol. She states that the throat pain feels like a soreness, worse with swallowing. States she has been around several people who are sick at her work. . Review of Systems Constitutional symptoms: Negative except as documented in HPI. Skin symptoms: Negative except as documented in HPI. Eye symptoms: Negative except as documented in HPI. ENMT symptoms: Negative except as documented in HPI. Respiratory symptoms: Negative except as documented in HPI. Cardiovascular symptoms: Negative except as documented in HPI. Gastrointestinal symptoms: Negative except as documented in HPI. Health Status Allergies: Allergic Reactions (Selected) Severity Not Documented Sulfa drugs- No reactions were documented.. Past Medical/ Family/ Social History Surgical history: No active procedure history items have been selected or recorded.. Family history: No family history items have been selected or recorded.. Social history: Social & Psychosocial Habits No Data Available . Problem list: No qualifying data available . Physical Examination Vital Signs Vital Signs/Vital Measures 04/23/2018 21:07 EDT Temperature Source Oral Temperature Mode Fahrenheit Temperature, Fahrenheit 98.9 Deg F Clinical Temperature, C 37.2 Deg C Peripheral Pulse Rate 70 bpm Respiratory Rate 18 Breaths/Min Systolic Blood Pressure 131 mmHg Diastolic Blood Pressure 76 mmHg Oxygen Saturation 100 % Oxygen Therapy Mode Room air 04/23/2018 20:02 EDT Temperature Source Oral Temperature Mode Fahrenheit Temperature, Fahrenheit 100 Deg F HI Clinical Temperature, C 37.8 Deg C Peripheral Pulse Rate 72 bpm Respiratory Rate 16 Breaths/Min Systolic Blood Pressure 124 mmHg Diastolic Blood Pressure 75 mmHg Oxygen Saturation 100 % Oxygen Therapy Mode Room air . Measurements 04/23/2018 20:02 EDT Height Source Stated Height Entry Format [place] Height/Length, LITHUANIAN (ft) 5 ft Height/Length LITHUANIAN 3 Inch CLINICALHEIGHT 160.02 cm [place] Body Weight 52.02 kg Weight Source, ED Standing scale Weight Entry Format [place] Weight [place] lb 177.5 lb CLINICALWEIGHT 80.68 kg Body Surface Area (BSA) 1.84 m2 Body Mass Index 31.5 kg/m2 HI . Oxygen Saturation 04/23/2018 21:07 EDT Oxygen Saturation 100 % 04/23/2018 20:02 EDT Oxygen Saturation 100 % . General: Alert, no acute distress. Skin: No rash, normal for ethnicity, Not cyanotic, Head: Normocephalic. Neck: Supple, trachea midline, Anterior cervical lymphadenopathy. Eye: Sclera: not icteric. Ears, nose, mouth and throat: Tympanic membranes clear, oral mucosa moist, Pharyngeal erythema without exudate, postnasal drip, Throat: no uvula shift. Cardiovascular: Regular rate and rhythm, No murmur, Normal peripheral perfusion, No edema. Respiratory: Lungs are clear to auscultation, respirations are non-labored, breath sounds are equal, Symmetrical chest wall expansion. Gastrointestinal: Soft, Nontender, Non distended. Psychiatric: Cooperative. Medical Decision Making Documents reviewed: Emergency department nurses' notes. Results review: Lab results : Lab Results 04/23/2018 20:07 EDT Rapid Strep Test See Result Influenza A+B Antigen See Result . Impression and Plan Diagnosis Acute viral pharyngitis - Discharge, Emergency medicine, Medical Plan Condition: Stable. Disposition: Discharged Admit/Transfer/Discharge: Discharge (Order): Start: 04/23/2018 20:50 EDT, Discharge to: Home. Prescriptions: Prescription [facility]: Chloraseptic Denise 1.4% topical spray (Prescribe): 5 [place], Oral, Q2H, for 5 Day(s), 180 mL, 0 Refill(s) ibuprofen 800 mg oral tablet (Prescribe): 1 Tab, Oral, TID, for 5 Day(s), PRN: as needed for pain, 15 Tab, 0 Refill(s). Patient was given the following educational materials: Pharyngitis, Rfxv-xm-Obeo, Pharyngitis, Iqcn-fp-Ewsl, Pharyngitis, Kybl-eo-Alpy, Pharyngitis, Ymao-xi-Zilt. Follow up with: Follow up with primary care provider Within 2 to 3 days Follow-up with primary care provider within 2-3 days of ED visit. Take medications as prescribed, gargle warm salt water for symptom control. Return to ED if symptoms worsen.Salvador 2:30 PM Appointment has been made. Please arrive 20 minutes early for your new patient appointment.; Patient Resource Center Within 2 to 3 days Patient states she does not have a Primary Care Provider. Scheduled a new patient appointment with Salvador Montes. Please contact the Patient Resource Center at if you need assistance scheduling a Specialist or Primary Care Provider in the future.; Follow up with primary care provider Within 2 to 3 days Follow-up with primary care provider within 2-3 days of ED visit. Take medications as prescribed, gargle warm salt water for symptom control. Return to ED if symptoms worsen.. documented in this encounter Plan of Treatment Not on file documented as of this encounter Visit Diagnoses Not on filedocumented in this encounter
--- OUTSIDE RECORDS SUMMARY | 2024-12-11 15:51 | XMS_ITS | Encounter Summary ---
Author Organization [employer] ([place], [place], [place], [place], [place]) Address [address] [place] [address] Care Team Providers Care Health Care Sanitary Technician Name Role Phone Unavailable Primary Care Provider Unavailabl e Encounter Details Date Type Department Care Team (Late st Contact Info) Description 04/25/2018 Transcribed Document [facility] [place] [facility] [place] [address] ProviderAleksandar MD [address] [place] [address] Social History Tobacco Use Types Packs/Day [...] Conversion Note - Aleksandar ProviderMD - 04/25/2018 11:11 AM CDT ED Discharge Entered On: 04/25/2018 11:11 EDT Performed On: 04/25/2018 11:11 EDT by JULIETTE BECKMAN, manager actuarial Process Patient Disposition : Discharge Personal Belongings With Patient : Yes Patient Education Completed : Yes Teaching Evaluation : Verbalizes understanding Link to Valuables and Belongings form : No IV Discontinued : Not applicable Nursing Documentation Completed : Yes JULIETTE BECKMAN, RN - 04/25/2018 11:11 EDT Electronically signed by Aaliyah [facility] Conversion Histologist Technologist Cerner at 05/24/2022 12:42 PM CDT documented in this encounter Plan of Treatment Not on file documented as of this encounter Visit Diagnoses Not on filedocumented in this encounter
--- OUTSIDE RECORDS SUMMARY | 2024-12-11 15:51 | XMS_ITS | Encounter Summary ---
Author Organization [employer] ([place], [place], [place], [place], [place]) Address [address] [place] [address] Care Team Providers Care Slot Editor Name Role Phone Unavailable Primary Care Provider Unavailabl e Encounter Details Date Type Department Care Team (Late st Contact Info) Description 04/23/2018 Transcribed Document [facility] [place] [address] ProviderAleksandar MD [address] [place] [address] Social History Tobacco Use Types Packs/Day [...] Aleksandar ProviderMD - 04/23/2018 10:03 PM CDT [address] [place] [address] Patient Information Name: YAHAIRA WALTON Age: 17 Years Date of : 2000 Arrival Time: 04/23/2018 19:57:00 Diagnosis Acute viral pharyngitis Primary Care Physician: Salvador Montes APRN-SHANNON Provider Information Primary Provider: NILAY GARRIDO PA Secondary Provider: WALTONYAHAIRA has been given the following list of patient education materials, prescriptions and follow-up instructions: Follow-up Instructions: With: Address: When: Salvador Montes [address] [place] [address], [place] [id number] [phone] [facility] (1) 2:30 PM Comments: Appointment has [...] control. Return to ED if symptoms worsen. Patient Education Materials: Pharyngitis Pharyngitis is a sore throat (pharynx). There is redness, pain, and swelling of your throat. Follow these instructions at home: ??? Drink enough fluids to keep your pee (urine) clear or pale yellow. ??? Only take medicine as told by your doctor. ? You may get sick again if you do not take medicine as told. Finish your medicines, even if you start to feel better. ? Do nottake aspirin. ??? Rest. ??? Rinse your mouth (gargle) with salt water (? tsp of salt per 1 qt of water) every 1?2 hours. This will help the pain. ??? If you are not at risk for choking, you can suck on hard candy or sore throat lozenges. Contact a doctor if: ??? You have large, tender lumps on your neck. ??? You have a rash. ??? You cough up green, yellow-brown, or bloody spit. Get help right away if: ??? You have a stiff neck. ??? You drool or cannot swallow liquids. ??? You throw up (vomit) or are not able to keep medicine or liquids down. ??? You have very bad pain that does not go away with medicine. ??? You have problems breathing (not from a stuffy nose). This information is not intended to replace advice given to you by your health care provider. Make sure you discuss any questions you have with your health care provider. Document Released: 07/10/2008 Document Revised: 06/29/2016 Document Reviewed: 09/29/2013 [employer] Interactive Patient Education ? 2017 [employer]. Allergies: sulfa drugs Medication Information: Prescription Display ibuprofen (ibuprofen 800 mg oral tablet) 1 Tab, Oral, Tab, TID, PRN as needed for pain, X 5 Day(s), # 15 Tab, 0 Refill(s) phenol topical (Chloraseptic Denise 1.4% topical spray) 5 [place], Oral, Q2H, X 5 Day(s), # 180 mL, 0 Refill(s) Laboratory or Other Results This Visit (last charted value for your 04/23/2018 visit) Microbiology 04/23/18 20:07:00 Influenza A+B Antigen: See Result Rapid Strep Test: See Result Medication Comment: Procedures: Laboratory Orders Name Status .STREP A CONF Ordered RAPID FLU Completed RAPID STREP Completed Radiology Orders No radiology orders were placed. Cardiology Orders No cardiology orders were placed. This statement is to verify that YAHAIRA WALTON was seen at [facility] Emergency Department on ,04/23/2018 22:03:50. This is not a work excuse, if [...] along the way. As a healthcare provider, [facility] recommends that you stop smoking. Assistance with quitting is available by contacting 7-430-WOMU-NOW. This is a free resource providing counseling, [...] and accompanying documents are covered by [employer] Privacy Act 18 U.S.C. ???Sections 5814-4775,?? and contain information intended for the specified [...] sure to sign up for the My [employer] patient portal, which gives you 28/08 access to your medical information ??? including these discharge instructions ??? using your computer, smartphone, or tablet. Just go to [employer] to get started. Questions? Call . Acknowledgment [...]
--- OUTSIDE RECORDS SUMMARY | 2024-12-11 15:51 | XMS_ITS | Encounter Summary ---
Author Organization [employer] ([place], [place], [place], [place], [place]) Address [address] [place] [address] Care Team Providers Care Breeder Hen Service Technician Name Role Phone Unavailable Primary Care Provider Unavailabl e Encounter Details Date Type Department Care Team (Late st Contact Info) Description 04/25/2018 Transcribed Document [facility] [place] Family Medicine [facility] [place] [address] ProviderAleksandar MD [address] [place] [id number] Social History Tobacco Use Types Packs/Day Years [...] Conversion Note - Historical ProviderMD - 04/25/2018 10:52 AM CDT Electronically signed by [facility] Conversion Ironing Worker Cerner at 05/24/2022 12:30 PM CDT documented in this encounter Plan of Treatment Not on file documented as of this encounter Visit Diagnoses Not on filedocumented in this encounter
--- OUTSIDE RECORDS SUMMARY | 2024-12-11 15:51 | XMS_ITS | Encounter Summary ---
Author Organization [employer] ([place], [place], [place], [place], [place]) Address [address] [place] [address] Care Team Providers Care Senior Electrical Designer Name Role Phone Unavailable Primary Care Provider Unavailabl e Encounter Details Date Type Department Care Team (Late st Contact Info) Description 08/22/2019 Transcribed Document [facility] [place] [facility] [place] [address] ProviderAleksandar MD [address] [place] [id number] Social History Tobacco Use Types Packs/Day Years [...] Conversion Note - Aleksandar ProviderMD - 08/22/2019 10:56 PM CDT Behavioral Health Assessment Note Entered On: 08/22/2019 23:00 EDT Performed On: 08/22/2019 22:56 EDT by Dominique Chahal, Iron Plastic Bullet Maker III Behavioral Health Assessment Note Reason For Behavioral Health Assessment : 19 YR OLD FEMALE IN ED FOR MENTAL HEALTH ASSESSMENT-SI Are You Currently Suicidal Or Homicidal? : Yes Suicidal Ideation : Constant suicidal thoughts Suicide Plan : No plan Current Admission Precipitated By Suicide Attempt : No Suicide Attempt History : Past attempts Are You Currently Homicidal : No Do You Have a Plan to Harm Others : No plan Clear Homicidal Target : No Thought Process : No difficulties Thought Content : Appropriate, Depression, Sadness Types of Hallucination(s) : Auditory Appearance : Appropriate Mood : Depressed Affect : Appropriate General behavior , BH : Cooperative Rate of Speech : Normal Tone of Speech : Average Orientation : Oriented x 4 Legal Guardian : No Legal Status : Voluntary Post-eval Disposition : Inpatient Acute Mode Of Departure, General Discharge : Ambulance/BLS Additional Behavioral Health Notes : PT ALERT AND ORIENTED X4. PT DENIES HI, REPORTS SI FOR LAST 2 WKS, AH LAST 3 DAYS TELLING HER TO HURT HERSELF. UDS POS FOR CANNABIS, BAL 0. STAFFED WITH DR RICE, HE WILL ADMIT TO [facility]. [facility] WILL TRANSPORT HER AT 11:30PM Dominique Chahal, Iron Plastic Bullet Maker III - 08/22/2019 22:56 EDT Social History (As Of: 08/22/2019 23:00:49 EDT) Tobacco: 10 or more cigarettes (1/2 pack or more)/day in last 30 days Smoking Status. Last Used: reports quit 2 weeks ago, approximately 04/11/18. (Last Updated: 04/25/2018 10:33:58 EDT by Catherine Maya RN-Flex Team) Home/Environment: Living situation: Home/Independent. (Last Updated: 04/25/2018 10:45:29 EDT by ALPHONSO MUNGUIA PA-C) documented in this encounter Plan of Treatment Not on file documented as of this encounter Visit Diagnoses Not on filedocumented in this encounter
--- OUTSIDE RECORDS SUMMARY | 2024-12-11 15:51 | XMS_ITS | Encounter Summary ---
Author Organization [employer] ([place], [place], [place], [place], [place]) Address [address] [place] [address] Care Team Providers Care Speaker Mounter Name Role Phone Unavailable Primary Care Provider Unavailabl e Encounter Details Date Type Department Care Team (Late st Contact Info) Description 08/22/2019 Transcribed Document [facility] [place] Family [place] [facility] [place] [address] ProviderAleksandar MD [address] [place] [address] Social History Tobacco Use Types [...] Aleksandar ProviderMD - 08/22/2019 7:26 PM CDT ED Assessment Entered On: 08/22/2019 20:11 EDT Performed On: 08/22/2019 20:09 EDT by AQUILES VILLAREAL RN ED Quick Look Assessment Level of Consciousness : Alert Affect/Behavior : Appropriate AQUILES VILLAREAL RN - 08/22/2019 20:09 EDT ED General-Functional Assess Information Obtained From : Patient Communication Barrier : None Primary Language : Icelandic Any Spiritual/Cultural Needs or Requests : No Currently in Unsafe Situation : No AQUILES VILLAREAL RN - 08/22/2019 20:09 EDT ED Psychosocial Assessment Affect/Behavior : Anxious AQUILES VILLAREAL RN - 08/22/2019 20:09 EDT Social Habits Smoking Status : Never (less than 100 in lifetime; none in last 30 days) Smokeless Tobacco Status : Never Desires Tobacco Cessation Calc : 0 AQUILES VILLAREAL RN - 08/22/2019 20:09 EDT Social History (As Of: 08/22/2019 20:11:45 EDT) Tobacco: 10 or more cigarettes (1/2 pack or more)/day in last 30 days Smoking Status. Last Used: reports quit 2 weeks ago, approximately 04/11/18. (Last Updated: 04/25/2018 10:33:58 EDT by Catherine Maya RN-Flex Team) Home/Environment: Living situation: Home/Independent. (Last Updated: 04/25/2018 10:45:29 EDT by ALPHONSO MUNGUIA PA-C) Cardiovascular ASMT, ED Cardiovascular Assessment WDL : AQUILES WELLS RN - 08/22/2019 20:09 EDT Respiratory Respiratory Assessment WDL : AQUILES WELLS RN - 08/22/2019 20:09 EDT Oxygen Therapy Oxygen Therapy Mode : Room air AQUILES VILLAREAL RN - 08/22/2019 20:09 EDT Neurologic ASMT, ED Neurologic Assessment WDL : AQUILES WELLS RN - 08/22/2019 20:09 EDT Electronically signed by Lin Fischer Conversion Work Environment Safety Inspector Cerner at 05/24/2022 12:24 PM CDT documented in this encounter Plan of Treatment Not on file documented as of this encounter Visit Diagnoses Not on filedocumented in this encounter
--- OUTSIDE RECORDS SUMMARY | 2024-12-11 15:51 | XMS_ITS | Encounter Summary ---
Author Organization [employer] ([place], [place], [place], [place], [place]) Address [address] [place] [address] Care Team Providers Care Market Investigator Name Role Phone Unavailable Primary Care Provider Unavailabl e Encounter Details Date Type Department Care Team (Late st Contact Info) Description 08/22/2019 Transcribed Document [facility] [place] [facility] [place] [address] ProviderAleksandar MD [address] [place] [id number] Social History Tobacco Use Types Packs/Day [...] Conversion Note - Historical ProviderMD - 08/22/2019 7:26 PM CDT ED Triage Entered On: 08/22/2019 19:49 EDT Performed On: 08/22/2019 19:39 EDT by Kanchan Wiggins RN ED Triage Across the Room Chief Complaint : pt c/o weakness N/V. unable to food and fluids down for a couple days. [facility] pt states she feels out of sorts and having thoughts of not wanting to live anymore. Triage Date/Time : 08/22/2019 19:39 EDT Kanchan Wiggins RN - 08/22/2019 19:39 EDT DCP GENERIC CODE Tracking Acuity : 1 - Critical Tracking Group : [facility] ED Kanchan Wiggins RN - 08/22/2019 19:39 EDT Mode of Arrival : Ambulatory Transported to ED by : Private vehicle To Room Via : Ambulate Accompanied By : Unaccompanied ED Vital Signs : Document Height & Weight : Document ED Allergies : Document ED Reason for Visit : Document Kanchan Wiggins RN - 08/22/2019 19:39 EDT Infectious Disease History Has the patient ever been tested for COVID-19? : No, Patient stated Does patient have symptoms of COVID-19? : No COVID19 Screening : No Experiencing Infectious Disease Symptoms : No symptoms Physical contact outside [place] in the last 30 days : No Infectious Disease History : None Tuberculosis Symptoms : None Kanchan Wiggins RN - 08/22/2019 19:39 EDT Vital Signs ED Temperature Source : Oral Temperature Mode : Fahrenheit Temperature, Fahrenheit : 98.1 Deg F ED Pain : Yes Clinical Temperature, C : 36.7 Deg C Oxygen Therapy Mode : Room air Peripheral Pulse Rate : 110 bpm (HI) Respiratory Rate : 16 Breaths/Min Blood Pressure Location : Arm, right upper Blood Pressure Source : Non-Invasive BP Device Systolic Blood Pressure : 140 mmHg Diastolic Blood Pressure : 90 mmHg Oxygen Saturation : 100 % Kanchan Wiggins RN - 08/22/2019 19:39 EDT Allergy (As Of: 08/22/2019 19:49:04 EDT) Allergies (Active) sulfa drugs Estimated Onset Date: Unspecified ; Created By: Justice Bunn RN; Reaction Status: Active ; Category: Drug ; Substance: sulfa drugs ; Type: Allergy ; Updated By: Justice Bunn RN; Reviewed Date: 08/22/2019 19:47 EDT Diagnosis Control ED (As Of: 08/22/2019 19:49:04 EDT) Problems(Active) No Chronic Problems ([place] :NKP ) Name of Problem: No Chronic Problems ; Recorder: Catherine Maya RN-Flex Team; Code: NKP ; Last Updated: 04/25/2018 10:32 EDT ; Life Cycle Date: 04/25/2018 ; Life Cycle Status: Active ; Vocabulary: [place]ner Diagnoses(Active) Mental health disorder Date: 08/22/2019 ; Diagnosis Type: Reason For Visit ; Confirmation: Complaint of ; Clinical Dx: Mental health disorder ; Classification: Medical ; Clinical Service: Non-Specified ; Code: PNED ; Probability: 0 ; Diagnosis Code: [id number] Suicidal thoughts Date: 08/22/2019 ; Diagnosis Type: Reason For Visit ; Confirmation: Complaint of ; Clinical Dx: Suicidal thoughts ; Classification: Medical ; Clinical Service: Non-Specified ; Code: PNED ; Probability: 0 ; Diagnosis Code: [id number] ED Height and Weight Height Source : Stated Height Entry Format : [place] Height, Feet : 5 ft(Converted to: 152 cm, 60 Inch) Height, Inches : 3 Inch(Converted to: 0 ft 3 Inch, 7.62 cm) Clinical Height : 160.02 cm Weight Source, ED : Critical estimated dosing weight Weight Entry Format : [place] Weight, Pounds : 168 lb Clinical Dosing Weight : 76.36 kg Body Surface Area (BSA) : 1.8 m2 Body Mass Index : 29.8 kg/m2 (HI) [place] Body Weight (IBW) : 52.02 kg Kanchan Wiggins RN - 08/22/2019 19:39 EDT Pain Assessment Pain Assessment : Initial assessment Pain Scale Used : 0-10 Scale Location : Abdomen, left lower, Abdomen, right lower, Abdominal Kanchan Wiggins RN - 08/22/2019 19:39 EDT documented in this encounter Plan of Treatment Not on file documented as of this encounter Visit Diagnoses Not on filedocumented in this encounter
--- NOTE | 2024-12-11 15:52 | US_ITS ---
FINAL REPORT TECHNIQUE: Sonographic images of the posterior right neck were obtained at the area of interest. CLINICAL HISTORY: LIPOMA COMPARISON: None. FINDINGS: At the area of interest, there is a small, hypoechoic oval nodule. It measures 10 mm. It is avascular. A second, hypoechoic, adjacent nodule measures 7 mm. These are nonspecific. No additional soft tissue abnormality. No convincing fluid collections. IMPRESSION: 2 small oval nodules of the area of interest of uncertain etiology or significance. These could be small lymph nodes. Authenticated and ERN
== END 2024-12-11 23:59 | disposition home or self-care (01) ==
LOC: RAD 15:49
PROVIDERS: PCP Nurse Practitioner Family; Visit Provider Nurse Practitioner Family
DX: D17.9 Benign lipomatous neoplasm, unspecified (principal); R93.89 Abnormal findings on diagnostic imaging of other specified body structures
CPT/HCPCS: 76536